=== PATIENT | male | born 1970 | race Two or more races ===

== ENCOUNTER 2022-12-15 09:53 | Outpatient (REF) | payer OTHER, SELFPAY ==
[2022-12-15 10:10] LABS: MANUAL DIFF FLAG NO
[2022-12-15 10:29] LABS: Basophils Absolute Auto 0.1 X10*3/uL (0.0-0.2); Basophils Percent Auto 0.8 % (0-2); Eosinophils Absolute Auto 0.2 X10*3/uL (0.0-0.4); Eosinophils Percent Auto 2.4 % (0-4); Imm Gran Abs Auto 0.01 X10*3/uL (0.00-0.03); Imm Gran Pct Auto 0.2 % (0.0-0.4); Lymphocytes Absolute Auto 1.7 X10*3/uL (1.2-4.9); Mean Corpuscular HGB Conc 32.6 g/dl (31.0-36.0); Mean Corpuscular Hemoglobin 27.5 pg (27.0-33.0); Mean Corpuscular Volume 84.4 fL (80.0-98.0); Mean Platelet Volume 10.3 fL (9.4-12.4); Monocytes Absolute Auto 0.8 X10*3/uL (0.1-1.2); Neutrophils Absolute Auto 3.6 x10*3/uL (2.0-8.3); Neutrophils Percent Auto 56.6 % (45-73); Platelet Count 214 X10*3/uL (160-400); Red Blood Count 5.45 X10*6/uL (4.60-5.80); Red Cell Distribution Width 15.1 % (11.0-16.0); White Blood Count 6.4 X10*3/uL (4.8-10.8)
[2022-12-15 11:00] LABS: Alanine Aminotransferase 23 U/L (0-40); Albumin Level 4.1 g/dL (3.5-5.0); Alkaline Phosphatase 64 U/L (39-117); Anion Gap 11 (12-20); Aspartate Amino Transferase 20 U/L (5-37); Blood Urea Nitrogen 20 mg/dL (9-16); Calcium 9.4 mg/dL (8.4-10.2); Carbon Dioxide 27 mmol/L (22-29); Chloride 107 mmol/L (96-108); Cholesterol 208 mg/dL; Estimated Glomerular Filt Rate > 60; Glucose Random 88 mg/dL (60-115); HDL Cholesterol 58 mg/dL; LDL Cholesterol Calculated 112 mg/dl; Potassium 4.7 mmol/L (3.3-5.1); Sodium 140 mmol/L (135-145); Total Protein 6.8 g/dL (6.5-8.0); Triglycerides 190 mg/dL
[2022-12-15 11:28] LABS: Folate 11.1 ng/mL (> or = 4.0); PSA,Total (Free>4and<10) 1.43 ng/mL (0.00-4.00); TSH reflex Free T4 2.55 uIU/mL (0.32-4.0); Vitamin B12 1035 pg/mL (200-900); Vitamin D 25-OH Total 97.1 ng/mL (>30)
[2022-12-25 06:38] LABS: Vitamin B1 21 nmol/L (8-30)
== END 2022-12-15 09:54 | disposition home or self-care (01) ==
LOC: HO.LAB 09:53
PROVIDERS: PCP Nurse Practitioner Family; Visit Provider Nurse Practitioner Family
DX: Z12.5 Encounter for screening for malignant neoplasm of prostate (principal); Z13.0 Encounter for screening for diseases of the blood and blood-forming organs and certain disorders involving the immune mechanism; Z13.220 Encounter for screening for lipoid disorders; Z13.29 Encounter for screening for other suspected endocrine disorder; R20.0 Anesthesia of skin
CPT/HCPCS: 36415; 80053; 80061; 82306; 82607; 82746; 84153; 84425; 84443; 85025

== ENCOUNTER 2022-12-18 13:28 | Outpatient (REF) | payer OTHER, SELFPAY ==
--- NOTE | ~2022-12-18 | XR_ITS ---
EXAMINATION: XR lumbar spine 2-3V CLINICAL INFORMATION: Reason for Exam M54.50 - Low back pain, unspecified COMPARISON: None TECHNIQUE: 3 views of the lumbar spine FINDINGS: 5 nonrib-bearing lumbar-type vertebral bodies. Vertebral body heights are maintained. Alignment is maintained. Disc space heights are maintained. There is nonspecific possible increased sclerosis of the left sacroiliac joint. Paravertebral soft tissues are unremarkable. XR/XR lumbar spine 2-3V IMPRESSION: Possible increased sclerosis of the left sacroiliac joint. Recommend correlation with clinical symptoms and dedicated radiographs of the pelvis.
== END 2022-12-18 13:29 | disposition home or self-care (01) ==
LOC: HO.XRAY 13:28
PROVIDERS: PCP Nurse Practitioner Family; Visit Provider Nurse Practitioner Family
DX: M54.50 Low back pain, unspecified (principal)
CPT/HCPCS: 72100

== ENCOUNTER 2023-01-03 13:38 | Outpatient (REF) | payer OTHER, SELFPAY ==
--- NOTE | ~2023-01-03 | XR_ITS ---
EXAMINATION: XR PELVIS CLINICAL INFORMATION: Sacrococcygeal disorders. COMPARISON: None available. TECHNIQUE: AP view of the pelvis. FINDINGS: The bones and soft tissues are normal. No fracture. Sacroiliac and hip joints are normal. Pubic symphysis is normal. No abnormal soft tissue calcifications. XR/XR pelvis 1-2V IMPRESSION: Unremarkable AP pelvis
== END 2023-01-03 13:39 | disposition home or self-care (01) ==
LOC: HO.XRAY 13:38
PROVIDERS: PCP Nurse Practitioner Family; Visit Provider Nurse Practitioner Family
DX: M53.3 Sacrococcygeal disorders, not elsewhere classified (principal)
CPT/HCPCS: 72170

== ENCOUNTER 2023-07-05 13:43 | Outpatient (AMB) | payer OTHER, SELFPAY ==
--- NOTE | 2023-07-05 13:59 | A.OFFPC_ITS ---
Vital Signs 07/05/23 14:01 Height 5 ft 11 in Weight 183 lb 0.4 oz BMI 25.5 BP 118/80 Blood Pressure Location Lt brachial Position Sitting Pulse 87 Pulse Source Pulse Oximeter Pulse Oximetry (%) 99 Oxygen Delivery Method Room Air Intake Visit Reasons: 3 MON FUP/MEDS/NEEDS PHQ9 W/ FUP PLAN LAST SCORE + Allergies Seasonal Allergies Allergy (Mild, Verified 07/05/23 14:11) Runny Nose Medication List - Last Reconciled 07/05/23 by PRACHI Leo amlodipine 5 mg PO DAILY apixaban (Eliquis) 5 mg PO BID ezetimibe (Zetia) 10 mg PO DAILY famotidine 20 mg PO DAILY lisinopril 5 mg PO DAILY metoprolol succinate ER 25 mg PO DAILY paroxetine HCl (Paxil) 10 mg PO DAILY rosuvastatin (Crestor) 40 mg PO DAILY Tobacco use date assessed: 01/15/23 HPI HPI Comments History of Present Illness Details 52-year-old male new patient medical his tory significant for HTN, Depression, myocardial infarction, cardiac stents x2, pacemaker and loop recorder present.? Patient states his pacemaker and recorder related to bradycardia and arrhythmia.?Patient on Eliquis 5 mg b.i.d. for anticoagulation. Patient states has upcoming appointment booked with Cardiology. [facility] Medical History (Updated 07/05/23 @ 14:22 by PRACHI Leo) CAD (coronary artery disease) Paroxysmal A-fib Numbness Lumbar back pain Implantable loop recorder present GERD (gastroesophageal reflux disease) Asthma Hypercholesteremia Pacemaker Myocardial infarction Hypertension Surgical History (Updated 12/15/22 @ 09:09 by PRACHI Leo) S/P appendectomy Hx of heart artery stent Family History (Updated 12/15/22 @ 09:11 by PRACHI Leo) Mother Diabetes HTN (hypertension) Father HTN (hypertension) Heart problem Social History (Updated 12/15/22 @ 09:12 by PRACHI Leo) Housing: House Alcohol intake: never Patient Tobacco Use Status: Never used Tobacco e-Cigarette/Vaping Use: Never Used service: No Current occupational status: unemployed Cognitive needs: No Hearing needs: No Vision needs: No Questionnaire Thrive Questionnaire Date Thrive assessed: 12/15/22 PAULINO-7 AMB Questionnaire PAULINO-7 Date PAULINO - 7 assessed: 12/15/22 Source: Developed by Drs. Carlos Marin, Kathi Garcia, Wilber Graves and colleagues, with an educational vikas from [employer]. Physical exam (Primary Care) Vital Signs: Last Vital Signs Pulse 87 07/05/23 14:01 BP 118/80 07/05/23 14:01 Pulse Ox 99 07/05/23 14:01 Oxygen Delivery Method Room Air 07/05/23 14:01 BMI result Body Mass Index 25.5 Tobacco/Smoking Status: Tobacco use Status Tobacco use date assessed 01/15/23 07/05/23 14:07 Patient Tobacco Use Status Never used Tobacco 07/05/23 14:07 e-Cigarette/Vaping Use Never Used 07/05/23 14:07 PHQ-9: PHQ-9 Score PHQ-9: Total score 6 07/07/23 07:14 Thrive Assessment: Date of Thrive Assessment Date Thrive assessed 12/15/22 07/05/23 14:07 Office Procedures Flu Questionnaire Does the patient have a severe egg allergy?: No Does the patient have severe life threatening allergies?: No Does the patient have a fever or illness today?: No Has the patient ever had Guillain-[place] Syndrome?: No Has the patient ever had any past reaction to a flu shot?: No Immunizations flu vacc [id number] 6mos up(PF) 60 mcg(15 mcgx4)/0.5 mL IM syringe Performing Provider: PRACHI Leo [facility] Administered by: ANDREI Washington on 07/05/23 14:26 Dose Route Admin Location Dispensed Lot Number Expiration Date NDC [employer] Soil Scientist 0.5 mL IM Left Deltoid 0.5 mL [id number] 03/09/24 05681-991-88 [employer] VIS Given Date VIS Provided VIS Publication Date 07/05/23 Single Vaccine 21 Eligibility Eligibility Date Funding Source Not [facility] Eligible 07/05/23 Private Assessment and Plan Assessment & Plan Orders: Orders Influenza [id number] Immunization 07/05/23 Z23 - Encounter for immunization Referrals Counseling Referral F32.A - Depression, unspecified Medications: New paroxetine HCl (Paxil) 10 mg PO DAILY 30 tabs 3RF ezetimibe (Zetia) 10 mg PO DAILY 30 tabs 3RF famotidine 20 mg PO DAILY 30 tabs 3RF Refilled metoprolol succinate ER 25 mg PO DAILY 30 tabs 3RF I10 - Essential (primary) hypertension amlodipine 5 mg PO DAILY 30 tabs 3RF I10 - Essential (primary) hypertension apixaban (Eliquis) 5 mg PO BID 60 tabs 3RF lisinopril 5 mg PO DAILY 30 tabs 3RF I10 - Essential (primary) hypertension rosuvastatin (Crestor) 40 mg PO DAILY 90 tabs 0RF Coding
[2023-07-05 14:01] VITALS: BP 118/80; PULSE 87; O2SAT 99; BMI 25.5
--- NOTE | 2023-07-05 14:01 | MHC.PC.OV ---
Vital Signs 07/05/23 14:01 Height 5 ft 11 in Weight 183 lb 0.4 oz BMI 25.5 BP 118/80 Blood Pressure Location Lt brachial Position Sitting Pulse 87 Pulse Source Pulse Oximeter Pulse Oximetry (%) 99 Oxygen Delivery Method Room Air Intake Visit Reasons: 3 MON FUP/MEDS/NEEDS PHQ9 W/ FUP PLAN LAST SCORE + Director Of Estate Required: No Allergies Seasonal Allergies Allergy (Mild, Verified 07/05/23 14:03) Runny Nose Tobacco use date assessed: 01/15/23 Dental Screening Dental Screen Date: 07/05/23 Did you have a dental visit in the last 12 months?: No Did you have a dental problem in the last 6 months where you did not have access to dental care?: No PFSH Medical History (Updated 12/28/22 @ 11:16 by PRACHI Leo) CAD (coronary artery disease) Paroxysmal A-fib Numbness Lumbar back pain Implantable loop recorder present GERD (gastroesophageal reflux disease) Asthma Hypercholesteremia Pacemaker Myocardial infarction Hypertension Surgical History (Updated 12/15/22 @ 09:09 by PRACHI Leo) S/P appendectomy Hx of heart artery stent Family History (Updated 12/15/22 @ 09:11 by PRACHI Leo) Mother Diabetes HTN (hypertension) Father HTN (hypertension) Heart problem Social History (Updated 12/15/22 @ 09:12 by PRACHI Leo) Housing: House Alcohol intake: never Patient Tobacco Use Status: Never used Tobacco e-Cigarette/Vaping Use: Never Used service: No Current occupational status: unemployed Cognitive needs: No Hearing needs: No Vision needs: No Questionnaire Thrive Questionnaire Date Thrive assessed: 12/15/22 AUDIT C Alcohol Use Questionnaire (AUDIT-C) 1. How often do you have a drink containing alcohol?: Never Total Score: 0 PAULINO-7 AMB Questionnaire PAULINO-7 Date PAULINO - 7 assessed: 12/15/22 Source: Developed by Drs. Carlos Marin, Kathi Garcia, Wilber Graves and colleagues, with an educational vikas from [employer]. Physical exam (Primary Care) Tobacco/Smoking Status: Tobacco use Status Tobacco use date assessed 01/15/23 07/05/23 14:00 Patient Tobacco Use Status Never used Tobacco 07/05/23 14:00 e-Cigarette/Vaping Use Never Used 07/05/23 14:00 Thrive Assessment: Date of Thrive Assessment Date Thrive assessed 12/15/22 07/05/23 14:00 Coding
--- NOTE | 2023-07-05 14:05 | MHC.PC.OV ---
Vital Signs 07/05/23 14:01 Height 5 ft 11 in Weight 183 lb 0.4 oz BMI 25.5 BP 118/80 Blood Pressure Location Lt brachial Position Sitting Pulse 87 Pulse Source Pulse Oximeter Pulse Oximetry (%) 99 Oxygen Delivery Method Room Air Intake Visit Reasons: 3 MON FUP/MEDS/NEEDS PHQ9 W/ FUP PLAN LAST SCORE + Vascular Physician Required: Yes Vascular Physician Language: Sorter Lumber Straightener Name: Linda in office mold mover Information Interpreted: non-clinical & clinical Allergies Seasonal Allergies Allergy (Mild, Verified 07/05/23 14:11) Runny Nose Medication List - Last Reconciled 07/05/23 by PRACHI Leo amlodipine 5 mg PO DAILY apixaban (Eliquis) 5 mg PO BID ezetimibe (Zetia) 10 mg PO DAILY famotidine 20 mg PO DAILY lisinopril 5 mg PO DAILY metoprolol succinate ER 25 mg PO DAILY paroxetine HCl (Paxil) 10 mg PO DAILY rosuvastatin (Crestor) 40 mg PO DAILY Tobacco use date assessed: 01/15/23 HPI HPI Comments History of Present Illness Details 52-year-old male new patient medical history significant for HTN, Depression, myocardial infarction, cardiac stents x2, pacemaker and loop recorder present.? Patient states his pacemaker and recorder related to bradycardia and arrhythmia.?Patient on Eliquis 5 mg b.i.d. for anticoagulation. Patient has not yet established care with wool scourer, patient has upcoming appointment August 01 2023. Patient reports that his pacemaker site is tender to touch any feels like it is inflamed. On examination pacemaker site tender to palpation no drainage, open area's or erythema. Patient denies fever, chills, shortness of breath and chest pain. Patient reports he needs refills on all of his medications as he ran out, refill sent. PHQ-9 assessment positive patient advised to continue on PAxil offered referral to counseling, patient agreeable in referral entered. [facility] Medical History (Updated 07/05/23 @ 14:22 by PRACHI Leo) CAD (coronary artery disease) Paroxysmal A-fib Numbness Lumbar back pain Implantable loop recorder present GERD (gastroesophageal reflux disease) Asthma Hypercholesteremia Pacemaker Myocardial infarction Hypertension Surgical History (Updated 12/15/22 @ 09:09 by PRACHI Leo) S/P appendectomy Hx of heart artery stent Family History (Updated 12/15/22 @ 09:11 by PRACHI Leo) Mother Diabetes HTN (hypertension) Father HTN (hypertension) Heart problem Social History (Updated 12/15/22 @ 09:12 by PRACHI Leo) Housing: House Alcohol intake: never Patient Tobacco Use Status: Never used Tobacco e-Cigarette/Vaping Use: Never Used service: No Current occupational status: unemployed Cognitive needs: No Hearing needs: No Vision needs: No Questionnaire PHQ-9 Over the last 2 weeks, how often have you been bothered by any of the following problems? 1. Little interest or pleasure in doing things: more than half the days 2. Feeling down, depressed, or hopeless: more than half the days 3. Trouble falling or staying asleep, or sleeping too much: more than half the days 4. Feeling tired or having little energy: not at all 5. Poor appetite or overeating: not at all 6. Feeling bad about yourself - or that you are a failure or have let yourself or your family down: not at all 7. Trouble concentrating on things, such as reading the newspaper or watching television: not at all 8. Moving or speaking so slowly that other people could have noticed. Or the opposite - being so fidgety or restless that you have been moving around a lot more than usual: not at all 9. Thoughts that you would be better off or of hurting yourself in some way: not at all Total score: 6 Depression Screening Interpretation: Positive (On paxil, referred to counseling ) Depression Screening Done: Yes 52065 - PHQ-9 Billing: Yes Source: Developed by Drs. Carlos Marin, Kathi Garcia, Wilber Graves and colleagues, with an educational vikas from [employer]. Thrive Questionnaire Date Thrive assessed: 12/15/22 PAULINO-7 AMB Questionnaire PAULINO-7 Date PAULINO - 7 assessed: 12/15/22 Source: Developed by Drs. Carlos Marin, Kathi Garcia, Wilber Graves and colleagues, with an educational vikas from [employer]. Review of Systems Const Denies chills, Denies fatigue, Denies fever(s) and Denies poor appetite Eyes Denies no additional complaints ENT Reports Normal hearing present Card Denies chest pain, Denies syncope, Denies rapid heart rate, Denies dyspnea and Reports other (pacemaker site feels inflamed ) Resp Denies cough and Denies dyspnea GI Denies change in stool character, Denies constipation, Denies diarrhea, Denies nausea and Denies vomiting Denies dysuria, Denies urinary frequency and Denies urinary urgency Neuro Reports Normal hearing present, Denies confusion and Denies syncope Psych Denies confusion Endo Denies fatigue Physical exam (Primary Care) Vital Signs: Last Vital Signs Pulse 87 07/05/23 14:01 BP 118/80 07/05/23 14:01 Pulse Ox 99 07/05/23 14:01 Oxygen Delivery Method Room Air 07/05/23 14:01 BMI result Body Mass Index 25.5 Tobacco/Smoking Status: Tobacco use Status Tobacco use date assessed 01/15/23 07/05/23 14:07 Patient Tobacco Use Status Never used Tobacco 07/05/23 14:07 e-Cigarette/Vaping Use Never Used 07/05/23 14:07 PHQ-9: PHQ-9 Score PHQ-9: Total score 6 07/06/23 07:23 Depression Screening Interpretation: Positive (On paxil, referred to counseling ) Thrive Assessment: Date of Thrive Assessment Date Thrive assessed 12/15/22 07/05/23 14:07 Const General: No confusion Orientation/consciousness: No confusion HENMT Head: Yes normocephalic and Yes atraumatic Eyes Conjunctivae: conjunctivae normal Chest Chest palpation & inspection: normal inspection of the chest, tenderness (Over palpation of pacemaker and loop recorder site.) and Pacemaker present (No overt erythema, edema or drainage. ) Resp Effort & Inspection: normal respiratory effort Auscultation: clear to auscultation bilaterally, no crackles, no rhonchi and no wheezes Cardio Rate: regular rate Rhythm: regular rhythm Heart sounds: S1 normal heart sound present and S2 normal heart sound present GI Inspection: Yes normal to inspection Neuro General: No confusion Cranial nerves: Yes Normal hearing present Extrem General: No edema Office Procedures Flu Questionnaire Does the patient have a severe egg allergy?: No Does the patient have severe life threatening allergies?: No Does the patient have a fever or illness today?: No Has the patient ever had Guillain-[place] Syndrome?: No Has the patient ever had any past reaction to a flu shot?: No Immunizations flu vacc [id number] 6mos up(PF) 60 mcg(15 mcgx4)/0.5 mL IM syringe Performing Provider: PRACHI Leo [facility] Administered by: ANDREI Washington on 07/05/23 14:26 Dose Route Admin Location Dispensed Lot Number Expiration Date NDC Metal Container Maker 0.5 mL IM Left Deltoid 0.5 mL [id number] 03/09/24 52199-945-82 [employer]-ID [employer] VIS Given Date VIS Provided VIS Publication Date 07/05/23 Single Vaccine 21 Eligibility Eligibility Date Funding Source Not [facility] Eligible 07/05/23 Private Assessment and Plan Assessment & Plan (1) Hypertension: Code(s): I10 - Essential (primary) hypertension Plan: Continue on lisinopril 5 mg daily, metoprolol 25 mg daily. Follow low-salt diet and exercise. (2) Hypercholesteremia: Code(s): E78.00 - Pure hypercholesterolemia, unspecified Plan: Continue on rosuvastatin 40 mg daily. Avoid fried foods, chicken skin, eggs, butter,margarine, pastries and?? red meat. (3) Pacemaker: Code(s): Z95.0 - Presence of cardiac pacemaker Plan: Patient reports pacemaker tenderness on palpation and feels like the pacemaker is inflamed. Patient reports concerns over pacemaker and he would like it to be checked. States that his cardiology appointment has been rescheduled couple of times. Cardiology office called on behalf of patient to request sooner appointment cardiology appointment rescheduled from 08/01/23 to 07/12/23. Patient made aware of above appointment via mailed letter as [facility] number was out of service. (4) Depression: Code(s): F32.A - Depression, unspecified Plan: Continue on Paxil 10 mg daily. Patient agreeable to counseling referral, referral entered. Plan Follow-up in 3 months. Orders: Orders Influenza [id number] Immunization 07/05/23 Z23 - Encounter for immunization Referrals Counseling Referral F32.A - Depression, unspecified Medications: New paroxetine HCl (Paxil) 10 mg PO DAILY 30 tabs 3RF ezetimibe (Zetia) 10 mg PO DAILY 30 tabs 3RF famotidine 20 mg PO DAILY 30 tabs 3RF Refilled metoprolol succinate ER 25 mg PO DAILY 30 tabs 3RF I10 - Essential (primary) hypertension amlodipine 5 mg PO DAILY 30 tabs 3RF I10 - Essential (primary) hypertension apixaban (Eliquis) 5 mg PO BID 60 tabs 3RF lisinopril 5 mg PO DAILY 30 tabs 3RF I10 - Essential (primary) hypertension rosuvastatin (Crestor) 40 mg PO DAILY 90 tabs 0RF Coding Level of Care Code Est Pt Level 4 (47256) Diagnoses Hypertension I10 Hypercholesteremia E78.00 Pacemaker Z95.0 Depression F32.A
== END 2023-07-05 14:27 | disposition home or self-care (01) ==
PROVIDERS: PCP Nurse Practitioner Family; Visit Provider Nurse Practitioner Family
DX: Z23 Encounter for immunization (principal)
CPT/HCPCS: 90471; 90686; 99214

== ENCOUNTER 2023-07-12 08:47 | Outpatient (AMB) | payer OTHER, SELFPAY ==
--- NOTE | 2023-07-12 11:05 | MHC.OFFVIS ---
Intake Vital Signs 07/12/23 11:08 Height 5 ft 11 in Weight 184 lb 4.903 oz BMI 25.7 BP 112/78 Blood Pressure Location Lt brachial Position Sitting Pulse 60 Intake Visit Reasons: NPV/DOREEN/HX OF CAD RECENTLY MOVED FROM [place] Intake Note: NPV w/ EKG Public Relations Counselor Required: Yes Public Relations Counselor Language: Sports Umpire Name: [id number] Guerda Accompanied by: Self / Same As Patient Allergies Seasonal Allergies Allergy (Mild, Verified 07/12/23 11:09) Runny Nose Medication List - Last Reconciled 07/12/23 by Geronimo Mitchell MD amlodipine 5 mg PO DAILY apixaban (Eliquis) 5 mg PO BID ezetimibe (Zetia) 10 mg PO DAILY famotidine 20 mg PO DAILY lisinopril 5 mg PO DAILY metoprolol succinate ER 25 mg PO DAILY paroxetine HCl (Paxil) 10 mg PO DAILY rosuvastatin (Crestor) 40 mg PO DAILY HPI HPI Comments History of Present Illness Details Doyle is here for consultation regarding various cardiac issues. Used to live in [place] but has moved to this area. Available records reviewed. Based on last cardiology note, it seems that he has a history of coronary artery disease and prior stents. However, details as to anatomy not very clear. He apparently had an implantable loop recorder initially put in and that showed some abnormalities leading to pacemaker placement. They loop recorder is still in place. Otherwise, noted to have paroxysmal atrial fibrillation on anticoagulation as well. Patient himself is generally okay. He does get some on and off chest pain at different times. Some shortness of breath with activity. At one point, he was told to have diminished heart function, around 48% per patient. He would like to reestablish care here. [facility] Medical History (Updated 07/12/23 @ 11:56 by Geronimo Mitchell MD) CAD (coronary artery disease) Paroxysmal A-fib Numbness Lumbar back pain Implantable loop recorder present GERD (gastroesophageal reflux disease) Asthma Hypercholesteremia Pacemaker Myocardial infarction Hypertension Surgical History (Updated 12/15/22 @ 09:09 by PRACHI Leo) S/P appendectomy Hx of heart artery stent Family History (Updated 12/15/22 @ 09:11 by Hayley O'Doreen, BEVELING MACHINE OPERATOR) Mother Diabetes HTN (hypertension) Father HTN (hypertension) Heart problem Social History (Updated 12/15/22 @ 09:12 by PRACHI Leo) Housing: House Alcohol intake: never Patient Tobacco Use Status: Never used Tobacco e-Cigarette/Vaping Use: Never Used service: No Current occupational status: unemployed Cognitive needs: No Hearing needs: No Vision needs: No Review of Systems Const Denies chills, Denies daytime sleepiness, Denies fatigue, Denies fever(s), Denies frequent falls, Denies night sweats, Denies snoring, Denies weakness, Denies weight gain and Denies weight loss Eyes Denies loss of vision ENT Denies dizziness and Denies hearing loss Card Denies chest pain, Denies chest pain with activity, Denies syncope, Denies rapid heart rate, Denies edema, Denies claudication, Denies leg edema, Denies lightheadedness, Denies palpitations, Denies dyspnea, Denies dyspnea on exertion and Denies orthopnea Resp Denies cough, Denies excessive phlegm production, Denies dyspnea, Denies dyspnea on exertion, Denies snoring and Denies wheezing GI Denies abdominal pain, Denies hematochezia, Denies change in bowel habits, Denies change in stool character, Denies heartburn, Denies nausea and Denies vomiting Denies hematuria, Denies dysuria and Denies urinary frequency Musc Denies arthralgias, Denies muscle weakness, Denies numbness and Denies tingling Skin/Breast Denies nail changes and Denies rash Neuro Denies Abnormal speech present, Denies dizziness, Denies syncope, Denies frequent falls, Denies loss of vision, Denies memory loss, Denies numbness, Denies tingling and Denies weakness Psych Denies depression and Denies memory loss Endo Denies fatigue and Denies palpitations Aller/Immun Denies wheezing Physical Exam Vital Signs: Last Vital Signs Pulse 60 07/12/23 11:08 BP 112/78 07/12/23 11:08 BMI result Body Mass Index 25.7 Const General: comfortable and no acute distress Orientation/consciousness: patient oriented x3 HEENT Other: Unremarkable Head: Yes normal to inspection Neck Neck: Yes normal visual inspection Chest Chest palpation & inspection: normal inspection of the chest Resp Auscultation: clear to auscultation bilaterally Cardio Palpation: normal PMI Heart sounds: S1 normal heart sound present, S2 normal heart sound present, no gallops, no murmurs and no rubs GI Palpation (GI): Soft to palpation Back/Spine/Pelvis Other: unremarkable Skin General skin exam: no rashes or lesions noted Neuro General: patient oriented x3 Speech: No Abnormal speech present Extrem General: Yes normal to inspection Psych Mental Status: mental status grossly normal Office Procedures EKG Details: EKG with sinus versus atrial paced rhythm at 60/Min but atrial spikes are not very clear. [id number], Complete Assessment & Plan Assessment & Plan (1) CAD (coronary artery disease): Code(s): I25.10 - Atherosclerotic heart disease of [place] coronary artery without angina pectoris Qualifiers: Coronary Disease-Associated Artery/Lesion type: [place] artery [place] vs. transplanted heart: [place] heart Associated angina: without angina Qualified Code(s): I25.10 - Atherosclerotic heart disease of [place] coronary artery without angina pectoris Plan: History of PCI around 3 years ago but unknown anatomy. Will need to call prior Cardiology office in [place] to get records about catheterization. (2) Pacemaker: Code(s): Z95.0 - Presence of cardiac pacemaker Plan: Will arrange interrogation. (3) Implantable loop recorder present: Code(s): Z95.818 - Presence of other cardiac implants and grafts Plan: He still has the ILR in place. Once we get more information, probably get this removed. (4) Paroxysmal A-fib: Code(s): I48.0 - Paroxysmal atrial fibrillation Plan: Continue anticoagulation. Coding Level of Care Code New Pt Level 4 (22462) Diagnoses Coronary artery disease involving [place] coronary artery of [place] heart without angina pectoris I25.10 Coronary Disease-Associated Artery/Lesion type: [place] artery [place] vs. transplanted heart: [place] heart Associated angina: without angina Pacemaker Z95.0 Implantable loop recorder present Z95.818 Paroxysmal A-fib I48.0 CPT Codes EKG - CPT: [id number]-[id number], Complete ([id number])
[2023-07-12 11:08] VITALS: BP 112/78; PULSE 60; BMI 25.7
== END 2023-07-12 11:35 | disposition home or self-care (01) ==
PROVIDERS: PCP Nurse Practitioner Family; Visit Provider Internal Medicine
DX: I25.10 Atherosclerotic heart disease of native coronary artery without angina pectoris (principal); Z95.0 Presence of cardiac pacemaker; Z95.818 Presence of other cardiac implants and grafts; I48.0 Paroxysmal atrial fibrillation
CPT/HCPCS: 93010; 99204

== ENCOUNTER → 2023-07-12 08:47 | Outpatient (BNVA) | payer OTHER, SELFPAY | PROVIDERS: PCP Nurse Practitioner Family; Visit Provider Internal Medicine | DX: I48.0 Paroxysmal atrial fibrillation (principal); I25.10 Atherosclerotic heart disease of native coronary artery without angina pectoris; I10 Essential (primary) hypertension; Z95.5 Presence of coronary angioplasty implant and graft; Z95.0 Presence of cardiac pacemaker; Z95.818 Presence of other cardiac implants and grafts; Z79.01 Long term (current) use of anticoagulants | CPT/HCPCS: 93005; 99202 ==